=== PATIENT | male | born 1975 | race Caucasian/White ===

== ENCOUNTER 2024-08-17 19:00 | Emergency (ER) | payer MEDICARE ==
[~2024-08-17] VITALS: Ht 182.9 cm; Wt 127.0 kg
[2024-08-17 19:20] VITALS: O2SAT 99
[2024-08-17] MEDS: OXYCODONE HCL 5MG TABLET PO ONE (21:06)
[2024-08-17] MEDS ORDERED: OXYC-662 MT (21:44)
[2024-08-18 00:01] VITALS: BP 130/75; PULSE 67; RESP 18; TEMP 36.89184; O2SAT 99
== END 2024-08-18 00:03 | disposition home or self-care (01) ==
LOC: ER 19:00
DX: M79.671 Pain in right foot (principal); F41.9 Anxiety disorder, unspecified; F32.9 Major depressive disorder, single episode, unspecified
CPT/HCPCS: 73562; 73590; 73600; 73620; 29515; 99284; Z7610